=== PATIENT | female | born 1945 | race Caucasian/White ===

== ENCOUNTER → 2018-07-31 | Outpatient (CLI) | payer MEDICARE, OTHER ==
--- NOTE | 2018-07-31 17:54 | Diagnostic Imaging Report ---
EXAMINATION: Renal ultrasound. CLINICAL HISTORY :Urinary tract infection COMPARISON: <None available.> TECHNIQUE: Grayscale and color Doppler evaluation of the kidneys and bladder was performed in transverse and longitudinal planes. DISCUSSION: RIGHT KIDNEY: The right kidney measures 11.6 x 5.6 x 5.3 cm in length and shows normal echogenicity. No hydronephrosis, shadowing calculi or solid mass lesions. LEFT KIDNEY: The left kidney measures 12.2 x 5.3 x 4.4 cm in length and shows normal echogenicity. No hydronephrosis, shadowing calculi or solid mass lesions. BLADDER: Unremarkable. IMPRESSION: Normal renal ultrasound Signed by: Dr. Mike Ibarra M.D. on 07/31/2018 5:50 PM
== END ==
LOC: US 15:05
PROVIDERS: ATTEND Urology
DX: N39.0 Urinary tract infection, site not specified (principal)
CPT/HCPCS: 76770

== ENCOUNTER → 2018-08-03 | Day surgery (SDC) | payer MEDICARE, OTHER ==
--- NOTE | 2018-08-02 15:26 | Diagnostic Imaging Report ---
EXAMINATION: CHEST 2 VIEWS INDICATION: Urinary tract infection. Preop COMPARISON: None FINDINGS: TUBES and LINES: None. LUNGS: Lungs are well inflated. Lungs are clear. There is no evidence of pneumonia or pulmonary edema. PLEURA: No pleural effusion or pneumothorax. HEART AND MEDIASTINUM: The cardiomediastinal silhouette is unremarkable. BONES AND SOFT TISSUES: No acute osseous lesion. Soft tissues are unremarkable. UPPER ABDOMEN: No free air under the diaphragm. IMPRESSION: No acute thoracic abnormality. Signed by: Dr. Julio Kent M.D. on 08/02/2018 3:23 PM
[2018-08-02 15:41] LABS: BASOPHILS # (AUTO) 0.1 (0.0-0.1); BASOPHILS % 0.6 % (0.0-1.0); EOSINOPHILS # (AUTO) 0.2 (0.0-0.4); EOSINOPHILS % 2.4 % (0.0-6.0); HEMATOCRIT 42.9 % (34.2-44.1); HEMOGLOBIN 14.3 g/dL (12.0-16.0); LYMPHOCYTES # (AUTO) 1.5 (1.0-3.2); LYMPHOCYTES % 16.7 % (18.0-39.1); MEAN CORPUSCULAR HEMOGLOBIN 30.3 pg (28-32); MEAN CORPUSCULAR HGB CONC 33.3 g/dL (31-35); MEAN CORPUSCULAR VOLUME 90.9 fL (81-99); MONOCYTES # (AUTO) 0.6 (0.2-0.8); NEUTROPHILS # (AUTO) 6.4 (2.1-6.9); NEUTROPHILS % 72.8 % (38.7-80.0); PLATELET COUNT 170 x10e3/uL (140-360); RED BLOOD COUNT 4.72 x10e6/uL (3.6-5.1); RED CELL DISTRIBUTION WIDTH 12.4 % (11.7-14.4)
[~2018-08-03] MED LIST: BACTRIM DS TAB1 EACH PO; CEFTRIAXONE SOD 1 GM VIAL ONE; DESFLURANE 240 ML BTL INH ONE; DEXAMETHASONE SOD PHOS INJ 4 MG/ML VIAL ONE; EPHEDRINE SULFATE INJ 50 MG/10 ML SYR ONE; FENTANYL CITRATE/PF 100MCG/2 ML INJ ONE; GABAPENTIN400 MG PO; IOPAMIDOL 610MG/1ML 300 MG/ML VIAL IV ONE; LEVOTHYROXINE112 MCG PO; LIDOCAINE HCL 2% LOCAL INJ 5 ML SDV VIAL INJ ONE; LOSARTAN POTAS100 MG PO; MIDAZOLAM HCL 2 MG/2 ML VIAL ONE; ONDANSETRON HCL INJ 2 MG/ML VIAL ONE; PROPOFOL IV EMULSION 10 MG/ML 20 ML VIAL ONE; SIMVASTATIN20 MG PO; VERAPAMIL ER120 MG PO
[2018-08-03 08:15] VITALS: BP 114/61
--- NOTE | 2018-08-03 12:59 | Operative Report ---
DATE OF PROCEDURE: August 03, 2018 PREOPERATIVE DIAGNOSES 1. Multiple chronic urinary tract infections. 2. Clinical findings and symptoms of interstitial cystitis. POSTOPERATIVE DIAGNOSES 1. Multiple chronic urinary tract infections. 2. Clinical findings and symptoms of interstitial cystitis with grade 2 cystocele. PROCEDURES PERFORMED 1. Cystourethroscopy with hydrodistention (entirely separate procedure for clinical findings and symptoms of interstitial cystitis). 2. Cystourethroscopy with left ureteral catheterization and left retrograde pyelogram (separate procedure for multiple chronic urinary tract infections). 3. Cystourethroscopy with right ureteral catheterization and right retrograde pyelogram (separate procedure for multiple chronic urinary tract infections). 4. Supervision of fluoroscopy. 5. Interpretation of retrograde pyelography. ANESTHESIA: General. ESTIMATED BLOOD LOSS: Minimal. COMPLICATIONS: None. INDICATIONS FOR PROCEDURE: Mrs. Dietz is a very pleasant 72-year-old female patient with a history of multiple chronic urinary tract infections and clinical signs and symptoms of interstitial cystitis. She and I had a long discussion in regard to the alternatives, the risks and the benefits including doing nothing, cystoscopy, IVP, retrograde pyelography and ultrasound. She voiced understanding of the options, of the alternatives, of the risks and the benefits, and she elected to proceed. PROCEDURE IN DETAIL: After informed consent was obtained, the patient was taken to the operative suite. She was placed supine on the operating table. She underwent general anesthesia by the anesthesia service. She was placed in the dorsal lithotomy position and sterilely prepped and draped in the standard fashion for cystoscopy. A 22.5-Angolan cystoscope was inserted per urethra, and a normal urethra was noted. Panendoscopy of the bladder revealed no tumors, no stones. Both ureteral orifices were in their normal anatomical location and position and were seen to efflux clear urine. A hydrodissection was performed and revealed a capacity of 800 mL, no glomerulations, no Hunner's ulcers. Bilateral retrograde pyelograms were performed, which were normal. The bladder was drained. The patient was awakened from the procedure and transported to the recovery room in excellent condition. SUPERVISION OF FLUOROSCOPY AND INTERPRETATION OF RETROGRADE PYELOGRAPHY: I was present throughout the entire procedure, and I supervised the use of fluoroscopy. There was no radiologist present at any time during this procedure. Attention was turned toward the left and right ureteral orifices, which were catheterized with an 8-Angolan cone-tipped catheter. In a retrograde fashion, contrast was injected, revealing delicate ureters, delicate pelvocaliceal systems, no evidence of filling defects, no evidence of hydronephrosis. IMPRESSION: Normal retrograde pyelograms. Job#: [id number] EV
--- OUTSIDE RECORDS SUMMARY | 2018-08-07 13:15 | XMS REPORT | Summary of Care ---
Author Author [facility] Organization [facility] Address Unknown Phone Unavailable Encounter HQ Encntr_alias(FIN) [id number] Date(s): 09/12/16 - 09/12/16 [facility] [address] [place] [address] 7 [phone] Discharge Disposition: Home or Self Care Attending Physician: Waldemar Carreno MD Vital Signs No data available for this section Problem List Condition Effective Dates Status Health Status Informant H/O: Resolved hyperthyroidism(Conf irmed) Hyperlipidemia(Confi Resolved rmed) Multiple Resolved sclerosis(Confirmed) Allergies, Adverse Reactions, Alerts Substance Reaction Severity Status NKDA Active Medications No data available for this section Results No data available for this section Immunizations No data available for this section Procedures Procedure Date Related Diagnosis Body Site section Hysterectomy Social History Social History Type Response Smoking Status Never smoker; Exposure to Tobacco Smoke None; Cigarette Smoking Last 365 Days No; Reg Smoking Cessation Counseling No Assessment and Plan No data available for this section
--- OUTSIDE RECORDS SUMMARY | 2018-08-07 13:15 | XMS REPORT ---
Author [facility] Address Unknown Phone Unavailable Care Team Providers Care Environmental Services Associate Name Role Phone GRAYSON BRAMBILA Unavailable Unavailable Problems This patient has no known problems. Allergies, Adverse Reactions, Alerts This patient has no known allergies or adverse reactions. Medications This patient has no known medications. Results Test Description Test Time Test Comments Text Results Atomic Results Result Comments CHEST 2 VIEWS 2018-08-02 15:22:00 [facility] [address], [place] [address] Patient Name: HAYLIE HO MR #: [id number] : 1945 Age/Sex: 72/F Req #: [id number] Adm Physician: Ordered by: GRAYSON BRAMBILA MD Report #: [id number] Location: OR Room/Bed: Procedure: [id number] DX/CHEST 2 VIEWS Exam Date: 08/02/18 Exam Time: 1505 REPORT STATUS: Signed EXAMINATION: CHEST 2 VIEWS INDICATION: Urinary tract infection. Preop COMPARISON: None FINDINGS: TUBES and LINES: None. LUNGS: Lungs are well inflated. Lungs are clear. There is no evidence of pneumonia or pulmonary edema. PLEURA: No pleural effusion or pneumothorax. HEART AND MEDIASTINUM: The cardiomediastinal silhouette is unremarkable. BONES AND SOFT TISSUES: No acute osseous lesion. Soft tissues are unremarkable. UPPER ABDOMEN: No free air under the diaphragm. IMPRESSION: No acute thoracic abnormality. Signed by: Dr. Julio Kent M.D. on 08/02/2018 3:23 PM Dictated By: JULIO KENT MD, MD 22 Transcribed By: NOAH on 08/02/181522 COPY TO: GRAYSON BRAMBILA MD US RENAL RETROPERITONEAL COMP 2018-07-31 17:49:00 [place] [address] Patient Name: HAYLIE HO MR #: [id number] : 1945 Age/Sex: 72/F Req #: [id number] Adm Physician: Ordered by: GRAYSON BRAMBILA MD Report #: [id number] Location: Room/Bed: Procedure: [id number] US/US RENAL RETROPERITONEAL COMP Exam Date: 07/31/18 Exam Time: 1542 REPORT STATUS: Signed EXAMINATION: Renal ultrasound. CLINICAL HISTORY :Urinary tract infection COMPARISON: <None available.> TECHNIQUE: Grayscale and color Doppler evaluation of the kidneys and bladder was performed in transverse and longitudinal planes. DISCUSSION: RIGHT KIDNEY: The right kidney measures 11.6 x 5.6 x 5.3 cm in length and shows normal echogenicity. No hydronephrosis, shadowing calculi or solid mass lesions. LEFT KIDNEY: The left kidney measures 12.2 x 5.3 x 4.4 cm in length and shows normal echogenicity. No hydronephrosis, shadowing calculi or solid mass lesions. BLADDER: Unremarkable. IMPRESSION: Normal renal ultrasound Signed by: Dr. Martha Burkett M.D. on 07/31/2018 5:50 PM Dictated By: MARTHA BURKETT MD Electronical ly Signed By: MARTHA BURKETT MD on 07/31/181749 Transcribed By: NOAH on 07/31/181749 COPY TO: GRAYSON BRAMBILA MD
--- OUTSIDE RECORDS SUMMARY | 2018-08-07 13:15 | XMS REPORT | Summary of Care ---
Author Author [facility] Address Unknown Phone Unavailable Encounter HQ Encntr_alias(FIN) [id number] Date(s): 05/17/17 - 06/15/17 [facility] Discharge Disposition: Home or Self Care Attending Physician: Boaz Roman DPKarine Vital Signs No data available for this [...]
--- OUTSIDE RECORDS SUMMARY | 2018-08-07 13:15 | XMS REPORT | Summary of Care ---
Author Organization Unknown Address Unknown Phone Unavailable Encounter MERCEDES Samuel(NAVEEN) [id number] Date(s): 11/05/14 - 11/05/[address] Discharge Disposition: Home Physician Attending: Rober Epps MD Physician Admitting: Rober Epps MD Physician_Referring: MondayZakia MD Reason for Visit CEREBRAL HEMORAGE Vital Signs 1 2 3 Most recent to oldest [Reference Range]: 165.1 cm (11/05/14 6:49 AM) Height 188 mmHg *HI* (11/05/14 12:30 PM) 160 mmHg *HI* (11/05/14 12:15 PM) 152 mmHg *HI* (11/05/14 12:00 PM) Systolic Blood Pressure [90-140 mmHg] 67 mmHg (11/05/14 12:30 PM) 73 mmHg (11/05/14 12:15 PM) 67 mmHg (11/05/14 12:00 PM) Diastolic Blood Pressure [60-90 mmHg] 17 BRMIN (11/05/14 12:30 PM) 22 BRMIN *HI* (11/05/14 12:15 PM) 17 BRMIN (11/05/14 12:00 PM) Respiratory Rate [14-20 BRMIN] 81.818 kg (11/05/14 6:49 AM) Weight 30.02 m2 (11/05/14 6:49 AM) Body Mass Index Problem List Condition Effective Dates Status Health Status Informant H/O: Resolved hyperthyroidism(Conf irmed) Hyperlipidemia(Confi Resolved rmed) Multiple Resolved sclerosis(Confirmed) Allergies, Adverse Reactions, Alerts Substance Reaction Severity Status NKDA Active Medications fentaNYL 50 microgram, Route: IV, ONCE, Dosing Weight 81.818, kg, Start date: 11/05/14 10 :58:00, Stop date: 11/05/14 10:58:00 Start Date: 11/05/14 Stop Date: 11/05/14 Status: Completed lidocaine 1 mL, Route: SUB-Q, ONCE, Dosing Weight 81.818, kg, Start date: 11/05/14 11:00:0 0, Stop date: 11/05/14 11:00:00 Start Date: 11/05/14 Stop Date: 11/05/14 Status: Completed midazolam 1 mg, Route: IV, ONCE, Dosing Weight 81.818, kg, Start date: 11/05/14 10:58:00, Stop date: 11/05/14 10:58:00 Start Date: 11/05/14 Stop Date: 11/05/14 Status: Completed Omnipaque 350 150 ml, Route: INTRAARTERIAL, Dosing Weight 81.818, kg, ONCE, Start date: 10:58:00, Stop date: 11/05/14 10:58:00 Start Date: 11/05/14 Stop Date: 11/05/14 Status: Completed Results ELECTROLYTES Most recent to 1 oldest [Reference Range]: Sodium Lvl [135-145 144 mEq/L mEq/L] (11/05/14 6:20 AM) Potassium Lvl 3.7 mEq/L [3.5-5.1 mEq/L] (11/05/14 6:20 AM) Chloride Lvl [95-109 108 mEq/L mEq/L] (11/05/14 6:20 AM) CO2 [24-32 mEq/L] 27 mEq/L (11/05/14 6:20 AM) AGAP [10.0-20.0 12.7 mEq/L mEq/L] (11/05/14 6:20 AM) CHEM PANEL Most recent to 1 oldest [Reference Range]: Creatinine Lvl 0.8 mg/dL [0.5-1.4 mg/dL] (11/05/14 6:20 AM) eGFR 76 mL/min/1.73m2 1 *NA* (11/05/14 6:20 AM) BUN [7-22 mg/dL] 22 mg/dL (11/05/14 6:20 AM) Glucose Lvl [70-99 86 mg/dL 2 mg/dL] (11/05/14 6:20 AM) Calcium Lvl 9.5 mg/dL [8.5-10.5 mg/dL] (11/05/14 6:20 AM) 1Result Comment: The eGFR is calculated using the CKD-EPI formula. In most young, healthy individuals the eGFR will be >90 mL/min/1.73m2. The eGFR declines with age. An eGFR of 60-89 may be normal in some populations, particularly the elderly, for whom the CKD-EPI formula has not been extensively validated. Use of the eGFR is not recommended in the following populations: Individuals with unstable creatinine concentrations, including patients and those with serious co-morbid conditions. Patients with extremes in muscle mass or diet. The data above are obtained from the National Kidney Disease Education Program ( NKDEP) which additionally recommends that when the eGFR is used in patients with extremes of body mass index for purposes of drug dosing, the eGFR should be mul tiplied by the estimated BMI. 2Interpretive Data: Adult reference range values reflect the clinical guidelines of the [place] [employer]. HEMATOLOGY Most recent to 1 oldest [Reference Range]: WBC [3.7-10.4 K/CMM] 7.4 K/CMM (11/05/14 6:20 AM) RBC [4.20-5.40 4.79 M/CMM M/CMM] (11/05/14 6:20 AM) Hgb [12.0-16.0 g/dL] 14.3 g/dL (11/05/14 6:20 AM) Hct [36.0-48.0 %] 42.8 % (11/05/14 6:20 AM) MCV [80.0-98.0 fL] 89.3 fL (11/05/14 6:20 AM) MCH [27.0-31.0 pg] 29.9 pg (11/05/14 6:20 AM) MCHC [32.0-36.0 33.4 g/dL g/dL] (11/05/14 6:20 AM) RDW [11.5-14.5 %] 13.4 % (11/05/14 6:20 AM) Platelet [133-450 187 K/CMM K/CMM] (11/05/14 6:20 AM) MPV [7.4-10.4 fL] 9.4 fL (11/05/14 6:20 AM) Segs [45.0-75.0 %] 61.0 % (11/05/14 6:20 AM) Lymphocytes 28.6 % [20.0-40.0 %] (11/05/14 6:20 AM) Monocytes [2.0-12.0 6.5 % %] (11/05/14 6:20 AM) Eosinophils [0.0-4.0 2.9 % %] (11/05/14 6:20 AM) Basophils [0.0-1.0 1.0 % %] (11/05/14 6:20 AM) Segs-Bands # 4.5 K/CMM [1.5-8.1 K/CMM] (11/05/14 6:20 AM) Lymphocytes # 2.1 K/CMM [1.0-5.5 K/CMM] (11/05/14 6:20 AM) Monocytes # [0.0-0.8 0.5 K/CMM K/CMM] (11/05/14 6:20 AM) Eosinophils # 0.2 K/CMM [0.0-0.5 K/CMM] (11/05/14 6:20 AM) Basophils # [0.0-0.2 0.1 K/CMM K/CMM] (11/05/14 6:20 AM) PT [12.0-14.7 13.6 seconds seconds] (11/05/14 6:20 AM) INR [0.85-1.17] 1.04 3 (11/05/14 6:20 AM) 3Interpretive Data: RECOMMENDED RANGES FOR PROTIME INR: 2.0-3.0 for most medical and surgical thromboembolic states. 2.5-3.5 for artificial heart valves and recurrent embolism. INR SHOULD BE USED ONLY FOR PATIENTS ON STABLE ANTICOAGULANT THERAPY. Medications Administered During Your Visit No data available for this section Immunizations No data available for this section Procedures Procedure Type Body Site Date of Procedure Related Diagnosis section Hysterectomy Social History Social History Type Response Smoking Status Never smoker, Exposure to Tobacco Smoke None, Cigarette Smoking Last 365 Days No, Reg Smoking Cessation Counseling No
--- OUTSIDE RECORDS SUMMARY | 2018-08-07 13:15 | XMS REPORT | Continuity of Care Document ---
Author Author [facility] Interface Address Unknown Phone Unavailable Problems Problem Status Onset Date Classification Date Reported Comments Source RIGHT LEG Active 02/16/2017 [facility] [place] Z12.31 - ENCNTR SCREEN MAMMOGRAM FOR MA Active 06/15/2016 [facility] [place] 722.10 - LUMBAR DISC DIS Active 03/03/2015 [facility] [place] CEREBRAL HEMORAGE Active 10/28/2014 [facility] THIRD CONSTITUTION PARTY FLIGHT 6505 0015-A Active 10/17/2014 [facility] THIRD CONSTITUTION PARTY FLIGHT 6505 0015-A Active 10/17/2014 [facility] H/O: hyperthyroidism Resolved Problem 03/31/2018 [facility] [place], [facility] [place] Hyperlipidemia Resolved Problem 03/31/2018 [facility] [place], [facility] [place] Multiple sclerosis Resolved Problem 03/31/2018 [facility] [place], [facility] [place] INTRACRANIAL HEMORR NOS Active [facility] LUMBAR Active [facility] [place] Medications Medication Details Route Status Patient Instructions Ordering Provider Order Date Source Lidocaine 1 mL, Route: SUB-Q, ONCE, Dosing Weight 81.818, kg, Start date: 11/05/14 11:00:00, Stop date: 11/05/14 11:00:00 Inactive 11/05/2014 [facility] Omnipaque 350 150 ml, Route: INTRAARTERIAL, Dosing Weight 81.818, kg, ONCE, Start date: 11/05/14 10:58:00, Stop date: 11/05/14 10:58:00 Inactive 11/05/2014 [facility] Midazolam 1 mg, Route: IV, ONCE, Dosing Weight 81.818, kg, Start date: 11/05/14 10:58:00, Stop date: 11/05/14 10:58:00 Inactive 11/05/2014 [facility] Fentanyl 50 microgram, Route: IV, ONCE, Dosing Weight 81.818, kg, Start date: 11/05/14 10:58:00, Stop date: 11/05/14 10:58:00 Inactive 11/05/2014 [facility] Allergies, Adverse Reactions, Alerts Substance Category Reaction Severity Reaction type Status Date Reported Comments Source Immunizations Immunization Date Given Site Status Last Updated Comments Source Results Order Name Results Value Reference Range Date Interpretation Comments Source Breast Mammo Scrn ZURDO incl CAD MA Breast Mammo Scrn ZURDO incl CAD MA BILATERAL DIGITAL SCREENING MAMMOGRAM WITH CAD: 03/28/2018 CLINICAL: Routine/Screening. Current study was evaluated with a Computer Aided Detection (CAD) system. COMPARISON:Comparison is made to exams dated: 09/12/2016 mammogram, 05/30/2014 mammogram, and 05/07/2013 mammogram - [facility]. TECHNIQUE: Mammographic views were obtained using digital acquisition. Current study was also evaluated with a Computer Aided Detection (CAD) system. FINDINGS: There are scattered fibroglandular densities in both breasts. No significant masses, calcifications, or other findings are seen in either breast. There has been no significant interval change. IMPRESSION: NEGATIVE RECOMMENDATION:There is no mammographic evidence of malignancy. A 1 year screening mammogram is recommended.(03/29/2019) This exam was interpreted at [id number] at [facility] Location. Professional services are provided by the [facility] Division of Diagnostic Imaging. Delisa Emery M.D. th/penrad:03/28/2018 18:32:[address]): RT Aaron(R)(M), [facility] letter sent: BI-RADS 1/2 Mammogram BI-RADS: 1 Negative 03/28/2018 - - Read by: Delisa Emery MD Dictated Date/time: 03/28/18 18:32 Electronically Signed by: Delisa Emery MD 03/28/18 18:32 FINAL REPORT PILAR De León Digital Mammo Screening Zurdo MA Digital Mammo Screening Zurdo MA - DIGITAL MAMMO SCREENING ZURDO MA BILATERAL DIGITAL SCREENING MAMMOGRAM WITH CAD: 09/12/2016 CLINICAL: Routine. Current study was evaluated with a Computer Aided Detection (CAD) system. Comparison is made to exams dated: 05/30/2014 mammogram, 05/07/2013 mammogram, 04/18/2012 mammogram - [facility], 01/02/2009 mammogram and 12/21/2007 mammogram - [facility] There are scattered fibroglandular densities in both breasts. There are benign calcifications in the left breast. No significant masses, calcifications, or other findings are seen in either breast. There has been no significant interval change. IMPRESSION: BENIGN There is no mammographic evidence of malignancy. A 1 year screening mammogram is recommended. Professional services are provided by the [facility] Division of Diagnostic Imaging. Darwin Hanks M.D. cm/penrad:09/13/2016 10:59:[address]: Carol Ann RSUSELL(Anabella)(Karine), [facility] This exam was dictated and interpreted by [id number] for MONCHO Duncan. letter sent: Normal exam Mammogram BI-RADS: 2 Benign 09/12/2016 - - Read by: Perez Hanks III, MD Dictated Date/time: 09/13/16 10:59 Electronically Signed by: Perez Hanks III, MD 09/13/16 10:59 FINAL REPORT VIKTORIA De León Spine lumbar w/wo contrast MRI Spine lumbar w/wo contrast MRI EXAM: MRI LUMBAR SPINE WITHOUT AND WITH CONTRAST DATE: March 10, 2015 03:31:45 PM INDICATION:722.10 Displacement of Lumbar Intervertebral Disc without Myelopathy ; low-back pain with radiation TECHNIQUE: Multiplanar, multisequence MRI lumbar spine performed both prior to and after uncomplicated IV administration of 19 cc Omniscan COMPARISON: Unavailable FINDINGS: The lumbar vertebral bodies have normal height, shape, and alignment. There is no worrisome marrow signal abnormality. The conus terminates normally at L1-L2. The paravertebral soft tissues are within normal limits. There is no abnormal enhancement Disc spaces, spinal canal, and neural foramina: T12-L1. Intervertebral disc height and signal are maintained. Posterior elements are normal. There is no stenosis. L1-L2. Intervertebral disc height and signal are maintained. Posterior elements are normal. There is no stenosis. L2-L3. Mild loss of intervertebral disc height and signal. There is left greater right facet hypertrophy. There is no stenosis.>] L3-L4. Loss of vertebral disc height and signal small diffuse disc bulge extend each foraminal zone appear bilateral facet hypertrophy. Ventral thecal sac is flattened, and right subarticular zone is chronic displacing the descending right L4 nerve root. There moderate bilateral neural foraminal narrowing. L4-L5. Loss of vertebral disc signal. Left greater left facet hypertrophy. Spinal canal is patent. Mild foraminal narrowing without nerve root mass effect. L5-S1. Loss of intervertebral disc signal with asymmetric right-sided disc osteophyte complex. Right greater left facet hypertrophy. Spinal canal is patent. Moderate left and moderate to severe right neural foraminal narrowing with disc and osteophytes causing mass effect on the L5 nerve root. IMPRESSION: 1. Disc and facet changes cause moderate to severe right neural foraminal narrowing with mass effect on the foraminal right L5 nerve root 2. No lumbar spinal stenosis. 3. Please see additional comments above 03/10/2015 - - Read by: Duke Rodas MD Dictated Date/time: 03/10/15 16:22 Electronically Signed by: Duke Rodas MD 03/10/15 16:41 FINAL REPORT PILAR De León CHEM PANEL eGFR 76 mL/min/1.73m2 11/05/2014 1Result Comment: The eGFR is calculated using [...] from the National Kidney Disease Education Program (NKDEP) which additionally recommends that when the eGFR is used in patients with extremes of body mass index for purposes of drug dosing, the eGFR should be multiplied by the estimated BMI. [facility] CHEM PANEL Glucose Lvl 86 mg/dL 70 - 99 11/05/2014 2Interpretive Data: Adult reference range values reflect the clinical guidelines of the [place] [employer]. [facility] CHEM PANEL CO2 27 meq/L 24 - 32 11/05/2014 [facility] CHEM PANEL Calcium Lvl 9.5 mg/dL 8.5 - 10.5 11/05/2014 [facility] CHEM PANEL Chloride Lvl 108 meq/L 95 - 109 11/05/2014 [facility] CHEM PANEL BUN 22 mg/dL 7 - 22 11/05/2014 [facility] CHEM PANEL Creatinine Lvl 0.8 mg/dL 0.5 - 1.4 11/05/2014 [facility] CHEM PANEL Sodium Lvl 144 meq/L 135 - 145 11/05/2014 [facility] CHEM PANEL Potassium Lvl 3.7 meq/L 3.5 - 5.1 11/05/2014 [facility] CHEM PANEL AGAP 12.7 meq/L 10.0 - 20.0 11/05/2014 [facility] HEMATOLOGY WBC 7.4 K/CMM 3.7 - 10.4 11/05/2014 [facility] HEMATOLOGY RBC 4.79 M/CMM 4.20 - 5.40 11/05/2014 [facility] HEMATOLOGY Hct 42.8 % 36.0 - 48.0 11/05/2014 [facility] HEMATOLOGY Hgb 14.3 g/dL 12.0 - 16.0 11/05/2014 [facility] HEMATOLOGY Platelet 187 K/CMM 133 - 450 11/05/2014 [facility] HEMATOLOGY MPV 9.4 fL 7.4 - 10.4 11/05/2014 [facility] HEMATOLOGY MCH 29.9 pg 27.0 - 31.0 11/05/2014 [facility] HEMATOLOGY RDW 13.4 % 11.5 - 14.5 11/05/2014 [facility] HEMATOLOGY MCV 89.3 fL 80.0 - 98.0 11/05/2014 [facility] HEMATOLOGY MCHC 33.4 g/dL 32.0 - 36.0 11/05/2014 [facility] HEMATOLOGY Monocytes 6.5 % 2.0 - 12.0 11/05/2014 [facility] HEMATOLOGY Eosinophils 2.9 % 0.0 - 4.0 11/05/2014 [facility] HEMATOLOGY Basophils 1.0 % 0.0 - 1.0 11/05/2014 [facility] HEMATOLOGY Segs 61.0 % 45.0 - 75.0 11/05/2014 [facility] HEMATOLOGY Lymphocytes 28.6 % 20.0 - 40.0 11/05/2014 [facility] HEMATOLOGY Lymphocytes # 2.1 K/CMM 1.0 - 5.5 11/05/2014 [facility] HEMATOLOGY Segs-Bands # 4.5 K/CMM 1.5 - 8.1 11/05/2014 [facility] HEMATOLOGY Eosinophils # 0.2 K/CMM 0.0 - 0.5 11/05/2014 [facility] HEMATOLOGY Basophils # 0.1 K/CMM 0.0 - 0.2 11/05/2014 [facility] HEMATOLOGY Monocytes # 0.5 K/CMM 0.0 - 0.8 11/05/2014 [facility] HEMATOLOGY PT 13.6 s 12.0 - 14.7 11/05/2014 [facility] HEMATOLOGY INR 1.04 0.85 - 1.17 11/05/2014 3Interpretive Data: RECOMMENDED RANGES FOR PROTIME INR: 2.0-3.0 for most medical and surgical thromboembolic states. 2.5-3.5 for artificial heart valves and recurrent embolism. INR SHOULD BE USED ONLY FOR PATIENTS ON STABLE ANTICOAGULANT THERAPY. [facility] Angiogram internal carotid artery bilateral VR Angiogram internal carotid artery bilateral VR PROCEDURE: DIAGNOSTIC CEREBRAL ANGIOGRAM DATE: Nov 05, 2014 11:33:00 AM HISTORY: 61 neural female with right frontoparietal subarachnoid hemorrhage in September 2014. CLINICAL INDICATION: Diagnostic angiogram is indicated to verify the integrity of the major intracranial vessels and evaluate for an etiology of subarachnoid hemorrhage CONSENT: The benefits and risks of the procedure were described to the patient in detail. Risks include but are not limited to the following: , stroke, renal dysfunction, radiation injury, femoral artery occlusion, femoral artery hemorrhage, and contrast allergy. The patient understood all the risks of the procedure and gave written consent to proceed. ATTENDING PHYSICIAN: Neurosurgery attending Dr. Castro Epps was present throughout the procedure and was immediately available for interpretation of the radiologic images. ADDITIONAL OPERATORS: Neurosurgery Endovascular fellow Dr. John Sylvester, Neuroradiology fellow Dr. Johnathan Mckeon PROCEDURE IN DETAIL: The patient was brought into neuro-interventional suite and placed in the supine position where moderate sedation was administered by a dedicated nurse under the direct supervision of the attending neurosurgeon. The patient was then prepped and draped in sterile fashion. The right femoral artery was accessed using single wall micropuncture technique and a 5 Italian sheath was placed. A 5 Italian Vert catheter was coaxially advanced with a 0.035 Terumo Glidewire through the sheath into aorta arch to select the following arteries by using roadmap technique: right internal carotid artery, right subclavian artery, right common carotid artery, right vertebral artery, , left subclavian artery, left common carotid artery, left external carotid artery and the left vertebral artery. Two-dimensional and selective 3-D cerebral angiogram runs were performed. After review of the angiography data, the catheter was withdrawn. Right femoral artery angiogram was performed and the catheter was removed. The right femoral artery sheath was removed and the arteriotomy was closed using a 5-Italian Mynx closure device Post procedure neurological examination was at the patient's baseline. The patient was was then transferred to the interventional holding area for post procedure care. CONTRAST: Omnipaque 300 total 110 cc. RADIATION DOSE: Cumulative Air KERMA Frontal: 732.86 mGy Cumulative Air KERMA Lateral: 281.45 mGy FLUOROSCOPY TIME: 10.1 minutes Tasks: 1. Right femoral artery catheterization. 2. Right internal carotid artery selective catheterization followed by 2-D angiogram runs. 3. Right subclavian artery selective catheterization followed by 2-D angiogram runs. 4. Right vertebral artery catheterization followed by 2-D cerebral angiogram runs. 5. Left external carotid artery selective catheterization followed by 2-D angiogram runs. 6. Left common carotid artery selective catheterization followed by 2-D angiogram runs. 7. Left vertebral artery selective catheterization followed by 2-D and rotational angiogram runs. 8. Right subclavian artery selective catheterization followed by 2-D angiogram runs. 9. Left subclavian artery selective catheterization followed by 2-D and 3-D angiogram runs. FINDINGS: There is common origin of the right common carotid and left common carotid arteries 1. Right internal carotid artery: Right internal carotid artery injection revealed robust filling of the right internal carotid artery (ICA), right middle cerebral artery (MCA), and the right anterior cerebral artery (HERVE). No aneurysmal dilation, dissection, malformation or fistula was present. There is thrombosis of the posterior left frontal cortical vein near its junction with the superior sagittal sinus. A right JOURNEYMAN PIPE FITTER is present. 2. Right subclavian artery: The right subclavian artery originates from the origin of the left subclavian artery 3. Right vertebral artery: Right vertebral artery injection revealed brisk opacification of the right vertebral and faint opacification of the superior cerebellar arteries. The right vertebral artery is nondominant. The right JOURNEYMAN PIPE FITTER is supplied from the anterior circulation. No aneurysm, malformation, fistula or dissection was demonstrated. Capillary and venous phases were normal. 4. Left common carotid artery: Left common carotid artery injection demonstrated robust filling of the left internal carotid artery branches, including the middle cerebral and anterior cerebral arteries. There was no aneurysm, dissection, malformation or fistula. A left JOURNEYMAN PIPE FITTER is present. Venous phase was within normal limits. 5. Left external carotid artery: Left external carotid artery injection revealed no arteriovenous shunting, abnormal blushing, or malformations. 6. Left vertebral artery: There is approximately 70% stenosis at the origin of the dominant left vertebral artery with mild flow limitation in Left vertebral artery injection revealed normal opacification of the left vertebral artery, left PICA, bilateral AICA, basilar artery, bilateral superior cerebellar arteries. The left JOURNEYMAN PIPE FITTER is supplied from the anterior circulation. No aneurysm, malformation, fistula or dissection is present. Venous phase was within normal limits. 7. Left subclavian artery: The left subclavian artery demonstrates atherosclerotic changes without flow limitation. IMPRESSION: 1. 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 2. 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 3. Common origin of the right common carotid and left common carotid arteries. The right subclavian artery originates at the origin of the left subclavian artery. 4. Left subclavian artery atherosclerotic changes. 11/05/2014 - - This report was dictated by a Milk Of Lime Slaker/Fellow. I have personally reviewed the images as well as the Resident's interpretation and agree with the findings. Read by: Johnathan Mckeon MD Resident: Johnathan Mckeon MD Dictated Date/time: 11/05/14 15:17 Electronically Signed by: Rober Epps MD 11/11/14 08:28 FINAL REPORT [facility] Vital Signs Vital Sign Value Date Comments Source Diastolic (mm Hg) 67 11/05/2014 [facility] Systolic (mm Hg) 188 11/05/2014 [facility] Respitory Rate 17 11/05/2014 [facility] Diastolic (mm Hg) 73 11/05/2014 [facility] Systolic (mm Hg) 160 11/05/2014 [facility] Respitory Rate 22 11/05/2014 [facility] Diastolic (mm Hg) 67 11/05/2014 [facility] Systolic (mm Hg) 152 11/05/2014 [facility] Respitory Rate 17 11/05/2014 [facility] Height 165.1 cm 11/05/2014 [facility] Weight 81.818 11/05/2014 [facility] BMI Calculated 30.02 11/05/2014 [facility] Encounters Location Location Details Encounter Type Encounter Number Reason For Visit Attending Provider ADM Date DC Date Status Source [facility] Bedded Outpatient [id number] Zakia Monday11/05/2014 11/05/2014 [facility] [place] [facility] [id number] Zakia Monday03/10/2015 03/11/2015 [facility] [place] [facility] [place] [facility] [id number] Zakia Monday04/01/2015 05/01/2015 [facility] [place] [facility] [place] [facility] [id number] Waldemar Carreno 09/12/2016 09/13/2016 [facility] [place] [facility] [place] [facility] [id number] Boaz Roman 05/17/2017 06/16/2017 [facility] [place] [facility] [place] [facility] [id number] Boaz Roman 06/28/2017 07/28/2017 [facility] [place] [facility] [place] [facility] [id number] Boaz Roman 07/31/2017 08/30/2017 [facility] [place] [facility] [place] [facility] [id number] Waldemar Carreno 03/28/2018 03/29/2018 [facility] [place] Procedures Procedure Code Date Perfomer Comments Source section [id number] [facility] [place] Hysterectomy [id number] [facility] [place] section [id number] [facility] [place] Hysterectomy [id number] [facility] [place] section [id number] [facility] Hysterectomy [id number] [facility]
--- OUTSIDE RECORDS SUMMARY | 2018-08-07 13:15 | XMS REPORT | Summary of Care ---
Author Organization Unknown Address Unknown Phone Unavailable Encounter HQ Valerianor_cora(FIN) [id number] Date(s): 03/10/15 - 03/10/15 [facility] Outpatient Imaging - [place] [address] [place], [place] [address] [phone] Discharge Disposition: Home Physician Attending: MondayZakia MD Vital Signs No data available for [...]
--- OUTSIDE RECORDS SUMMARY | 2018-08-07 13:15 | XMS REPORT | Summary of Care ---
Author Author [facility] [place] Organization [facility] [place] Address Unknown Phone Unavailable Encounter HQ Rachelentr_cora(FIN) [id number] Date(s): 03/28/18 - 03/28/18 [facility] Outpatient Imaging - [place] [address] [place] [phone] Discharge Disposition: Home or Self Care Attending [...] Procedures Procedure Date Related Diagnosis Body Site Status section Completed Hysterectomy Completed Social History Social History Type Response Smoking Status Never smoker; Exposure to Tobacco Smoke None; Cigarette Smoking Last 365 Days No; Reg Smoking Cessation Counseling No entered on: 11/05/14 Assessment and Plan No data available for this section
--- OUTSIDE RECORDS SUMMARY | 2018-08-07 13:15 | XMS REPORT | Summary of Care ---
Author Organization Unknown Address Unknown Phone Unavailable Encounter HQ Encntr_cora(FIN) [id number] Date(s): 04/01/15 - 04/30/15 [facility] Discharge Disposition: Home Physician Attending: MondayZakia MD [...]
--- OUTSIDE RECORDS SUMMARY | 2018-08-07 13:15 | XMS REPORT | Summary of Care ---
Author Author [facility] Address Unknown Phone Unavailable Encounter HQ Encntr_alifco(FIN) [id number] Date(s): 06/28/17 - 07/27/17 [facility] Discharge Disposition: Home or Self Care Attending [...]
--- OUTSIDE RECORDS SUMMARY | 2018-08-07 13:15 | XMS REPORT | Summary of Care ---
Author Author [facility] Address Unknown Phone Unavailable Encounter HQ Encntr_alias(FIN) [id number] Date(s): 07/31/17 - 08/29/17 [facility] Discharge Disposition: Home or Self Care Attending [...]
== END | disposition home or self-care (01) ==
LOC: OR 05:05
PROVIDERS: ATTEND Urology
DX: N39.0 Urinary tract infection, site not specified (principal); R32 Unspecified urinary incontinence; R35.1 Nocturia; I10 Essential (primary) hypertension; Z01.810 Encounter for preprocedural cardiovascular examination; Z01.812 Encounter for preprocedural laboratory examination; Z01.818 Encounter for other preprocedural examination; Z79.82 Long term (current) use of aspirin; Z87.891 Personal history of nicotine dependence
CPT/HCPCS: 36415; 52005; 71046; 74420; 85025; 93005; C1758; J0696; J1100; J2001; J2250; J2405; Q9967

== ENCOUNTER → 2023-03-03 | Outpatient (CLI) | payer MEDICARE, OTHER ==
[~2023-03-03] MED LIST changes: -CEFTRIAXONE SOD 1 GM VIAL ONE; -DESFLURANE 240 ML BTL INH ONE; -DEXAMETHASONE SOD PHOS INJ 4 MG/ML VIAL ONE; -EPHEDRINE SULFATE INJ 50 MG/10 ML SYR ONE; -FENTANYL CITRATE/PF 100MCG/2 ML INJ ONE; -IOPAMIDOL 610MG/1ML 300 MG/ML VIAL IV ONE; -LIDOCAINE HCL 2% LOCAL INJ 5 ML SDV VIAL INJ ONE; -MIDAZOLAM HCL 2 MG/2 ML VIAL ONE; -ONDANSETRON HCL INJ 2 MG/ML VIAL ONE; -PROPOFOL IV EMULSION 10 MG/ML 20 ML VIAL ONE
== END ==
LOC: MRI 13:48
PROVIDERS: ATTEND Pain Medicine Pain Medicine
DX: M54.16 Radiculopathy, lumbar region (principal)
CPT/HCPCS: 72148